=== PATIENT | male | born 1960 | race Caucasian/White ===

== ENCOUNTER 2018-12-06 20:00 | Emergency (ER) | payer SELFPAY ==
--- NOTE | 2018-12-06 20:15 | NUR.NOTE ---
Nursing Note: pt fell 18ft off of a roof at 1830 landing on his feet and then striking his wrists and coxic. no LOC no neck pain no flank pain not chest pain PT ambulated to the ED himself. primary complaint left ankle pain 10/10 pain wrist pain 5/10 and lowere back/tailbone 10/10
[2018-12-06 20:18] VITALS: BP 148/103; PULSE 74; RESP 14; TEMP 36.8; O2SAT 99
--- NOTE | 2018-12-06 20:19 | ED.GENADUL_ITS ---
Discharge Plan Disposition Patient Disposition: HOME Condition: Good Discharge Details Chief Complaint: Trauma Clinical Impression: T12 compression fracture, Left ankle sprain, Contusion, multiple sites, Fall from roof as cause of accidental injury Primary Care Provider: Phi Deleon ED Provider: Yannick Duggan [place] Meds and New Rx's Prescriptions: New ibuprofen 600 mg tablet 600 mg PO Q8H PRN (Reason: pain) Qty: 20 RF: 0 lidocaine [Lidoderm] 5 % adhesive patch,medicated 1 patch TP DAILY Qty: 15 RF: 0 Continued omeprazole 20 MG capsule,delayed release(DR/EC) 20 mg PO DAILY RF: 0 fluticasone propionate 16 GM spray,suspension 1 spry RF: 0 Discharge Instructions Additional Instructions: You will be sore and stiff over the next couple of days. Recommend ice and gentle stretching for the first couple days. Switch to heat over the weekend. Lidoderm patch to the back as directed. Ibuprofen every 8 hours as needed. May also take acetaminophen 1 g every 6-8 hours. Follow up with orthopedics in 1 to 2 weeks for reevaluation of your back and left ankle. Wear the ankle brace until follow-up. Return to ED if you develop any numbness, weakness, bladder or bowel dysfunction, increasing pain, other concerns or problems. Referrals: Miko Dillon MD [ [facility] STAFF PHYSICIAN] - Medical Decision Making Patient with fall from roof landing mostly on feet and buttocks. No head injury. No neurologic symptoms. Pain in the left ankle, pelvis, LS spine area. Hemodynamically stable. Will keep flat. 2 IVs established. Labs, CT scans, x-rays ordered. Fluids, morphine, Zofran given. 21:45 - labs unremarkable. X-ray of left ankle and foot negative per my review as well as preliminary radiology read. CT scan of the chest abdomen pelvis with TLS reconstruction shows minimal T12 anterior compression fracture otherwise negative. On reevaluation patient complaining of left hand/thumb pain. Tender over the metacarpal bone of the thumb. X-ray ordered. Given urine sample now. 23:15 -x-ray of left hand negative. Urine dipstick negative. We will give a dose of Toradol and apply Lidoderm patch to the T12 area. Will place in ankle stirrup. We will give prescriptions for Lidoderm patches and ibuprofen. Off work for the next couple of days. Will refer to orthopedics for follow-up in 1 to 2 weeks for both the ankle and the back. Return to ED for any neurologic changes, worsening pain, other concerns or problems. Lab Data Lab results reviewed: Yes I reviewed the patient's lab results. HPI General Mode of arrival: wheelchair . Date/Time Provider Initiated Documentation: 12/06/18 20:18 . Limitations to Documentation: no limitations . Information obtained by: patient, family and RN notes reviewed . HPI Narrative: Patient presents to ED with complaint of left ankle pain and back pain status post falling approximately 18 feet off a roof. He was trying to get up to clean the chimney. He stepped onto the roof ladder but thought it did not feel right and went to step back onto the ladder leading up to the roof. When he did this the roof ladder slid off the roof. This caused him to fall backwards. Neither ladder hit him. He landed on the ground striking first with his foot and buttocks. He was stunned but did not strike his head and did not have a loss of consciousness. He has no neck pain or upper back pain. He has no chest pain or difficulty breathing. He has pain in the lower back and tailbone region as well as the left ankle. He denies numbness or tingling or weakness. His brought him in for evaluation. He is having difficulty ambulating. Related Data Home Medications Medication Instructions Recorded Confirmed fluticasone propionate 1 spry 08/24/13 08/24/13 omeprazole 20 mg PO DAILY 08/24/13 12/06/18 ibuprofen 600 mg PO Q8H PRN #20 tab 12/06/18 lidocaine [Lidoderm] 1 patch TP DAILY #15 each 12/06/18 Previous Rx's Medication Instructions Recorded ibuprofen 600 mg PO Q8H PRN #20 tab 12/06/18 lidocaine [Lidoderm] 1 patch TP DAILY #15 each 12/06/18 Allergies Allergy/AdvReac Type Severity Reaction Status Date / Time No Known Allergies Allergy Unverified 12/06/18 20:24 Review of Systems Review of Systems Narrative: 12/31 Review of Systems completed and is negative except as stated above in HPI (Systems reviewed: Const, Eyes, ENT, Resp, CV, GI, , MSK, Skin, Neuro) [facility] Medical History (Updated 12/06/18 @ 20:33 by Yannick Duggan MD) GERD (gastroesophageal reflux disease) (Chronic) Social History Smoking/Tobacco Use Status: Never Alcohol Intake: current Alcohol Intake frequency: 0-2 drinks per day Drug use: Occasionally Substance use type: does not use and marijuana Do you feel safe at home: Yes Do you feel safe in your relationship?: Yes Exam Narrative Exam Narrative: Vitals: Afebrile. Elevated BP but otherwise normal vitals and saturations. Const: WDWN male in NAD. HEENT: NC/AT. Normal facial exam. Eyes: PERRL and EOMI. Neck: Supple. Trachea midline. No C-spine tenderness. Lungs: Normal respiratory effort. Lungs are clear. Chest wall non-tender. Cor: RRR without murmur/gallop. Good distal pulses. GI: Soft. NT/ND. No guarding or rebound. Back: No t-spine tenderness. Midline LS spine tenderness present. Bruising present. Neuro: A+O x 3. CN grossly in tact. Normal strength and sensation throughout. Ext: No pelvis instability or tenderness. Left ankle with swelling and bruising. No other extremity tenderness/deformity. Skin: Warm and dry without abrasions or lacerations.
[2018-12-06] MEDS: Lactated Ringers 1,000 ML 1000 ML IV (20:39)
[2018-12-06] MEDS: MORPHine 10 MG/ML VIAL 5 MG IVP ×3 (20:40→23:03)
[2018-12-06] MEDS: Ondansetron 4 MG/2 ML VIAL IVP (20:41)
[2018-12-06 20:47] LABS: Abs Immature Grans 0.03 k/cumm (0.0-0.09); Absolute Basophil Count 0.02 k/cumm (0.0-0.2); Absolute Lymphocyte Count 0.92 k/cumm (1.2-3.4); Absolute Monocyte Count 0.59 k/cumm (0.11-0.7); Absolute Neutrophil Count 3.31 k/cumm (1.2-6.7); Basophils % 0.4; Eosinophils % 3.9; HCT 39.2 % (40.0-50.0); HGB 13.9 g/dL (13.5-17.5); Immature Grans % 0.6; Lymphocytes % 18.1; Mean Corp. HGB Concentration 35.5 g/dL (32.0-36.0); Mean Corpuscular Hemoglobin 33.8 pg (27.0-33.0); Mean Corpuscular Volume 95.4 fL (80-95); Mean Platelet Volume 9.8 fL (8.0-11.0); Monocytes % 11.6; Neutrophils % 65.4; Platelet Count 164 x1000/uL (130-400); RBC 4.11 m/cumm (4.50-6.00); RBC Distribution Width 12.5 % (11.8-14.1); White Blood Cell Count 5.07 k/cumm (4.4-10.8)
--- NOTE | 2018-12-06 20:50 | DI.RAD_ITS ---
EXAM: XR ANKLE LT COMPLETE INDICATION: fell of roof. COMPARISON: No exams were available for comparison TECHNIQUE: 2D digital imaging was performed. FINDINGS: Soft tissue swelling is identified about the ankle. There is no evidence of a fracture or dislocatio n.
--- NOTE | 2018-12-06 20:52 | DI.RAD_ITS ---
EXAM: XR FOOT LT COMPLETE INDICATION: fell off roof. COMPARISON: No exams were available for comparison TECHNIQUE: 2D digital imaging was performed. FINDINGS: There is no evidence of an acute fracture or dislocation.
[2018-12-06 20:59] LABS: ALT 60 U/L (16-63); AST 30 U/L (15-37); Albumin 4.2 g/dL (3.4-5.0); Alkaline Phosphatase 62 U/L (46-116); Anion Gap 12.1 mmol/L (3-11); BUN 22 mg/dL (7-18); Bilirubin, Total 0.5 mg/dL (0.2-1.0); CO2 23.9 mmol/L (21.0-32.0); CREATININE 1.09 mg/dL (0.70-1.30); Calcium 8.4 mg/dL (8.5-10.1); Chloride 104 mmol/L (98-107); Glucose 97 mg/dL (70-100); Sodium 140 mmol/L (136-145); Total Protein 7.9 g/dL (6.4-8.2)
[2018-12-06 21:01] VITALS: PULSE 75; RESP 10; O2SAT 98
[2018-12-06 21:04] VITALS: BP 138/85; PULSE 74; PULSE 75; RESP 9; O2SAT 99
--- NOTE | 2018-12-06 21:10 | DI.CT_ITS ---
EXAM: CT CHEST/ABD/PEL W CLINICAL HISTORY: fell of second story roof. TECHNIQUE: The exam was performed according to the usual protocol. Examination of the abdomen and pelvis study was carried out according to the usual protocol with intr avenous administration 100 cc of Omnipaque 350. COMPARISON: No exams were available for comparison FINDINGS: The lungs are well expanded. No infiltrate identified. There is no pneumothorax or pleural effusion. The heart is not enlarged. Note is made of a moderate size hiatus hernia. Aorta is unremarkable. Th ere is no evidence of lymphadenopathy. Note is made of age-indeterminate fractures involving the ante rior portion of the right 2nd, 3rd, and 4th ribs,clinical correlation is needed. The soft tissues ar e unremarkable. Fatty infiltration of the liver is noted. There is no evidence of an acute injury. Gallbladder is nor mal. There are no stones or ductal dilatation. Pancreas, spleen, adrenals, kidneys unremarkable. Ther e is no evidence of bowel obstruction. No localized area of mucosal thickening is evident. Appendix i s normal. There is no evidence of free air or free fluid in the intraperitoneal space. There is no ev idence of an aortic aneurysm. There is no evidence of lymphadenopathy. The bladder is unremarkable. The reproductive organs as visualized are unremarkable. There is a compr ession fracture of T2 with less than 10 percent loss of vertebral height. There is no evidence of cor d compression. No other fractures are seen. Note is made of small bilateral fat containing inguinal h ernias IMPRESSION: Age indeterminate anterior upper rib fractures are identified. Clinical correlation is needed. There is otherwise no evidence of an acute thoracic abnormality. There is a minimal compression fracture of T2 no other acute abnormality is identified.
--- NOTE | 2018-12-06 21:21 | DI.CT_ITS ---
EXAM: CT THORACIC LUMBAR SPINE WO CLINICAL HISTORY: fell off second story roof. COMPARISON: No exams were available for comparison FINDINGS: THORACIC: There is a minimal compression fracture of T12 of less than 10 percent loss of vertebral he ight. There is no evidence of spinal stenosis or cord compression. The soft tissues are unremarkable . LUMBAR: Reveals no evidence of an acute fracture or dislocation. There is no evidence of spinal arvin nosis.The soft tissues unremarkable. . IMPRESSION: Minimal compression fracture of T12 with less than 10 percent loss of vertebral height. No acute findings involving the lumbar spine.
--- NOTE | 2018-12-06 21:27 | DI.VRAD_ITS ---
PROCEDURE INFORMATION: Exam: XR Left Ankle Exam date and time: 12/06/2018 8:33 PM Clinical history: 58 years old, male; Patient HX: Left ankle pain after fall TECHNIQUE: Imaging protocol: XR Left ankle. Views: 3 or more views. COMPARISON: No relevant prior studies available. FINDINGS: Bones/joints: Normal. No acute fracture or dislocation. Soft tissues: There is soft tissue swelling and a joint effusion. IMPRESSION: No acute no acute fracture or dislocation. Soft tissue and joint effusion present. Dictated and Authenticated by: Enma Martinez MD. Ordering:KATHARNIE Lanier MD
--- NOTE | 2018-12-06 21:27 | DI.VRAD_ITS ---
PROCEDURE INFORMATION: Exam: CT Chest With Contrast Exam date and time: 12/06/2018 9:05 PM Clinical history: 58 years old, male; Injury or trauma; Fall; Initial encounter; Generalized; Blunt trauma (contusions or hematomas); Injury date: 12/06/2018; Injury details: Fell 2 stories from roof TECHNIQUE: Imaging protocol: Computed tomography of the chest with intravenous contrast. Radiation optimization: All CT scans at this facility use at least one of these dose optimization techniques: automated exposure control; mA and/or kV adjustment per patient size (includes targeted exams where dose is matched to clinical indication); or iterative reconstruction. COMPARISON: No relevant prior studies available. FINDINGS: Lungs: The lungs are clear. Pleural space: Unremarkable. No pneumothorax. No pleural effusion. Heart: Unremarkable. No cardiomegaly. No pericardial effusion. Mediastinum: Moderate hiatal hernia. Aorta: Unremarkable. No aortic aneurysm. Lymph nodes: Unremarkable. No enlarged lymph nodes. Bones/joints: Age-indeterminate fractures of the anterior right ribs 2, 3 and 4, clinical correlation needed. No displaced fractures are seen. Soft tissues: Unremarkable. IMPRESSION: Age-indeterminate anterior upper right rib fractures as described. Clinical correlation needed. No other acute findings in the chest. PROCEDURE INFORMATION: Exam: CT Abdomen and Pelvis With Contrast Exam date and time: 12/06/2018 9:05 PM Clinical history: 58 years old, male; Injury or trauma; Fall; Initial encounter; Generalized; Blunt trauma (contusions or hematomas); Injury date: 12/06/2018; Injury details: Fell 2 stories from roof TECHNIQUE: Imaging protocol: Computed tomography of the abdomen and pelvis with intravenous contrast. Radiation optimization: All CT scans at this facility use at least one of these dose optimization techniques: automated exposure control; mA and/or kV adjustment per patient size (includes targeted exams where dose is matched to clinical indication); or iterative reconstruction. Contrast material: [id number]; Contrast volume: 100 ml; Contrast route: IV RAC 18G; COMPARISON: No relevant prior studies available. FINDINGS: Liver: There is a diffuse decrease in hepatic parenchymal density, consistent with fatty infiltration. No acute liver injury. Gallbladder and bile ducts: Normal. No calcified stones. No ductal dilation. Pancreas: Normal. No ductal dilation. Spleen: Normal. No splenomegaly. Adrenals: Normal. No mass. Kidneys and ureters: Normal. No hydronephrosis. Stomach and bowel: Unremarkable. No obstruction. No mucosal thickening. Appendix: A normal appendix is identified. Intraperitoneal space: Unremarkable. No free air. No significant fluid collection. Vasculature: Unremarkable. No abdominal aortic aneurysm. Lymph nodes: Unremarkable. No enlarged lymph nodes. Bladder: Unremarkable as visualized. Reproductive: Unremarkable as visualized. Bones/joints: Mild compression fracture at T12 with less than 10% loss of vertebral body height.. No evidence of cord compression. No other fractures are seen. Soft tissues: There are small bilateral fat containing inguinal hernias. IMPRESSION: Minimal T12 compression fracture. No other acute findings. Dictated and Authenticated by: Enma Martinez MD. Ordering:KATHARINE Lanier MD
--- NOTE | 2018-12-06 21:28 | DI.VRAD_ITS ---
PROCEDURE INFORMATION: Exam: XR Left Foot Complete Exam date and time: 12/06/2018 8:33 PM Clinical history: 58 years old, male; Pain; Ankle and foot; Left TECHNIQUE: Imaging protocol: XR Left foot. Views: 3 or more views. COMPARISON: No relevant prior studies available. FINDINGS: Bones/joints: Normal. No acute fracture or dislocation. Soft tissues: Normal. IMPRESSION: No acute findings. Dictated and Authenticated by: Enma Martinez MD. Ordering:KTAHARINE Lanier MD
--- NOTE | 2018-12-06 21:30 | DI.VRAD_ITS ---
PROCEDURE INFORMATION: Exam: CT Thoracic Spine Without Contrast Exam date and time: 12/06/2018 9:08 PM Clinical history: 58 years old, male; Injury or trauma; Fall; Initial encounter; Blunt trauma (contusions or hematomas); Injury date: 12/06/2018; Injury details: Fell 2 stories from roof TECHNIQUE: Imaging protocol: Computed tomography images of the thoracic spine without contrast. Radiation optimization: All CT scans at this facility use at least one of these dose optimization techniques: automated exposure control; mA and/or kV adjustment per patient size (includes targeted exams where dose is matched to clinical indication); or iterative reconstruction. COMPARISON: No relevant prior studies available. FINDINGS: Vertebrae: Minimal compression fracture at T12, with less than 10% loss of vertebral body height. Discs/Spinal canal/Neural foramina: No spinal stenosis. No cord compression. Soft tissues: Unremarkable. IMPRESSION: Minimal compression fracture at T12, with less than 10% loss of vertebral body height. PROCEDURE INFORMATION: Exam: CT Lumbar Spine Without Contrast Exam date and time: 12/06/2018 9:08 PM Clinical history: 58 years old, male; Injury or trauma; Fall; Initial encounter; Blunt trauma (contusions or hematomas); Injury date: 12/06/2018; Injury details: Fell 2 stories from roof TECHNIQUE: Imaging protocol: Computed tomography images of the lumbar spine without contrast. Radiation optimization: All CT scans at this facility use at least one of these dose optimization techniques: automated exposure control; mA and/or kV adjustment per patient size (includes targeted exams where dose is matched to clinical indication); or iterative reconstruction. COMPARISON: No relevant prior studies available. FINDINGS: Vertebrae: No acute fracture. Normal alignment. Discs/Spinal canal/Neural foramina: No spinal stenosis. No neural foraminal narrowing. Soft tissues: Unremarkable. IMPRESSION: No acute findings in the lumbar spine. Dictated and Authenticated by: Enma Martinez MD. Ordering:KATHARINE Lanier MD
--- NOTE | 2018-12-06 22:59 | DI.RAD_ITS ---
EXAM: XR HAND LT COMPLETE INDICATION: trauma. COMPARISON: LEFT HAND COMPLETE from 08/23/2017 TECHNIQUE: 2D digital imaging was performed. FINDINGS: There is no evidence of an acute fracture or dislocation. Degenerative changes involving the 1st met acarpal multangular and inter multangular joints is demonstrated. IMPRESSION: No evidence of a fracture or dislocation.
--- NOTE | 2018-12-06 23:07 | DI.VRAD_ITS ---
PROCEDURE INFORMATION: Exam: XR Left Hand Exam date and time: 12/06/2018 9:45 PM Clinical history: 58 years old, male; Injury or trauma; Fall; Initial encounter; Blunt trauma (contusions or hematomas; Hand; Left; Injury date: 12/06/2018; Injury details: Fell 2 stories from roof TECHNIQUE: Imaging protocol: XR Left hand. Views: 3 or more views. COMPARISON: CR LEFT HAND COMPLETE 08/23/2017 8:06 PM FINDINGS: Bones/joints: Normal. Soft tissues: Normal. IMPRESSION: No acute findings. Dictated and Authenticated by: Enma Martinez MD. Ordering:KATHARINE Lanier MD
[2018-12-06 23:16] LABS: Bilirubin Negative (Negative); Blood Negative (Negative); Clarity Clear (Clear); Glucose Negative (Negative); Ketones Negative (Negative); Leukocyte Esterase Negative (Negative); Nitrite Negative (Negative); Specific Gravity <= 1.005 (1.005-1.025); Urobilinogen 0.2 EU/dL (Up TO 0.2); pH 5.5 (5-8)
== END 2018-12-06 23:55 | disposition home or self-care (01) ==
PROVIDERS: Emergency Provider Emergency Medicine; PCP Specialist/Technologist Athletic Trainer
DX: S22.080A Wedge compression fracture of T11-T12 vertebra, initial encounter for closed fracture (principal); S93.402A Sprain of unspecified ligament of left ankle, initial encounter; S60.222A Contusion of left hand, initial encounter; S30.0XXA Contusion of lower back and pelvis, initial encounter; W13.2XXA Fall from, out of or through roof, initial encounter
CPT/HCPCS: 29515; 36415; 74177; 80053; 86850; 86900; 86901; 96361; 96374; 96375; 96376; 99285; 71260; 72128; 72131; 73130; 73610; 73630; 81003; 85025; J2270; J2405; L4350

== ENCOUNTER 2018-12-20 09:49 | Outpatient (CLI) | payer SELFPAY ==
--- NOTE | 2018-12-20 09:37 | DI.RAD_ITS ---
EXAM: XR ANKLE LT COMPLETE INDICATION: L ankle pain s/p fall. COMPARISON: XR ANKLE LT COMPLETE from 12/06/2018 XR FOOT LT COMPLETE from 12/20/2018 TECHNIQUE: 2D digital imaging was performed. FINDINGS: Three views of the ankle and three views the foot were obtained. The ankle mortise is well maintaine d. There are minimal degenerative changes of the joints of the ankle and foot. No other significant bony abnormality seen. IMPRESSION:
== END 2018-12-20 10:09 ==
PROVIDERS: PCP Specialist/Technologist Athletic Trainer; Visit Provider Student in an Organized Health Care Education/Training Program
DX: M79.672 Pain in left foot (principal); M25.572 Pain in left ankle and joints of left foot
CPT/HCPCS: 73610; 73630

== ENCOUNTER 2019-02-21 10:37 | Outpatient (CLI) | payer SELFPAY ==
--- NOTE | 2019-02-21 10:29 | DI.RAD_ITS ---
EXAM: XR WRIST LT COMP NAVICULAR INDICATION: L wrist injury. COMPARISON: LEFT HAND COMPLETE from 08/23/2017 XR HAND LT COMPLETE from 12/06/2018 TECHNIQUE: 2D digital imaging was performed. FINDINGS: There are mild degenerative changes of the distal radial ulnar joint and radial carpal joint. There are mild to moderate degenerative changes at the 1st carpal metacarpal joint. A bone island is note d in the distal pole of the navicular. No navicular fracture is seen. IMPRESSION: Mild degenerative changes.
== END 2019-02-21 10:57 ==
PROVIDERS: PCP Specialist/Technologist Athletic Trainer; Visit Provider Physician Assistant
DX: M25.532 Pain in left wrist; M18.12 Unilateral primary osteoarthritis of first carpometacarpal joint, left hand; M19.042 Primary osteoarthritis, left hand; S69.92XA Unspecified injury of left wrist, hand and finger(s), initial encounter
CPT/HCPCS: 73110

== ENCOUNTER 2019-03-12 08:23 | Outpatient (CLI) | payer SELFPAY ==
[2019-03-12 09:59] LABS: Calculated LDL 135 mg/dL; Cholesterol 218 mg/dL (<200); HDL Cholesterol 64 mg/dL (40-60); Triglyceride 95 mg/dL (<150)
[2019-03-14 09:58] LABS: PSA, Screening 0.4 ng/mL (0.0-3.5); Parathyroid Hormone,Intact 87 pg/mL (19-88)
== END 2019-03-12 08:43 ==
PROVIDERS: PCP Specialist/Technologist Athletic Trainer; Visit Provider Nurse Practitioner Family
DX: E21.3 Hyperparathyroidism, unspecified (principal); Z13.220 Encounter for screening for lipoid disorders; Z12.5 Encounter for screening for malignant neoplasm of prostate; Z00.00 Encounter for general adult medical examination without abnormal findings
CPT/HCPCS: 36415; 80061; 84153; 83970

== ENCOUNTER 2021-01-19 11:38 | Outpatient (REF) | payer SELFPAY ==
[2021-01-19 15:08] LABS: Anion Gap 11.2 mmol/L (3-11); BUN 17 mg/dL (7-18); CO2 24.8 mmol/L (21.0-32.0); Calcium 8.8 mg/dL (8.5-10.1); Calculated LDL 113 mg/dL (<100); Chloride 107 mmol/L (98-107); Cholesterol 212 mg/dL (<200); Glucose 93 mg/dL (74-106); HDL Cholesterol 59 mg/dL (40-60); Potassium 4.2 mmol/L (3.5-5.1); Sodium 143 mmol/L (136-145); Triglyceride 200 mg/dL (<150)
[2021-01-20 10:36] LABS: Parathyroid Hormone,Intact 51 pg/mL (19-88)
[2021-01-21 01:42] LABS: Vitamin D 25 Total 36.1 ng/mL (30-100)
== END 2021-01-19 11:39 | disposition home or self-care (01) ==
LOC: NCHCN 11:38
PROVIDERS: PCP Specialist/Technologist Athletic Trainer; Visit Provider Nurse Practitioner Family
DX: I10 Essential (primary) hypertension (principal)
CPT/HCPCS: 80048; 80061; 82306; 83970

== ENCOUNTER 2021-06-01 21:20 | Outpatient (REF) | payer SELFPAY ==
[2021-06-01 12:52] LABS: Calcium 8.5 mg/dL (8.5-10.1); PHOSPHORUS 2.5 mg/dL (2.6-4.7)
[2021-06-02 10:18] LABS: Parathyroid Hormone,Intact 63 pg/mL (19-88)
[2021-06-03 00:48] LABS: Vitamin D 25 Total 34.9 ng/mL (30-100)
== END 2021-06-01 21:21 | disposition home or self-care (01) ==
LOC: NCHCN 21:20
PROVIDERS: PCP Specialist/Technologist Athletic Trainer; Visit Provider Nurse Practitioner Family
DX: E21.3 Hyperparathyroidism, unspecified (principal); I10 Essential (primary) hypertension; M85.80 Other specified disorders of bone density and structure, unspecified site
CPT/HCPCS: 82306; 82310; 82565; 83970; 84100

== ENCOUNTER 2021-12-21 01:57 | Outpatient (CLI) | payer SELFPAY ==
[2021-12-21 09:02] LABS: ALT 50 U/L (16-63); AST 27 U/L (15-37); Albumin 4.2 g/dL (3.4-5.0); Alkaline Phosphatase 58 U/L (46-116); Anion Gap 8.2 mmol/L (3-11); BUN 18 mg/dL (7-18); Bilirubin, Total 0.9 mg/dL (0.2-1.0); CO2 27.8 mmol/L (21.0-32.0); CREATININE 1.1 mg/dL (0.70-1.30); Chloride 103 mmol/L (98-107); Glucose 105 mg/dL (74-106); PHOSPHORUS 2.9 mg/dL (2.6-4.7); Potassium 4.4 mmol/L (3.5-5.1); Sodium 139 mmol/L (136-145); Total Protein 8.1 g/dL (6.4-8.2)
[2022-02-09 08:58] LABS: NTX-Telopeptide 9.2 nM BCE (5.4-24.2)
== END 2021-12-21 01:58 | disposition home or self-care (01) ==
LOC: LBO 01:58
PROVIDERS: PCP Specialist/Technologist Athletic Trainer; Visit Provider Internal Medicine Endocrinology, Diabetes & Metabolism
DX: M81.0 Age-related osteoporosis without current pathological fracture (principal)
CPT/HCPCS: 36415; 80053; 82523; 84100

== ENCOUNTER 2021-12-21 08:22 | Outpatient (REF) | payer SELFPAY ==
--- OUTSIDE RECORDS SUMMARY | 2021-12-21 08:24 | XMS_ITS ---
:1960 Author Care Team Providers Name Role Phone Jossue Valenzuela Primary Care Provider Unavailable Allergies Code Code System Name Reaction Severity Status Onset NKDA ? Notes: Seasonal allergies. Medications Name Status Start Date Stop Date ? ? amoxicillin 500 mg capsule Completed ? 08/17 TAKE ONE CAPSULE BY MOUTH EVERY 8 HOURS UNTIL GONE amoxicillin 875 mg-potassium clavulanate 125 mg tablet Completed ? 08/17/2021 TAKE ONE TABLET BY MOUTH TWICE A DAY calcium carbonate 600 mg calcium (1,500 mg) tablet Completed ? 08/17/2021 Take 1 tablet every day by oral route. calcium carbonate 600 mg-vitamin D3 20 mcg (800 unit) tablet Act serjio ? Not available Take 1 tablet every day by oral route. chlorhexidine gluconate 0.12 % mouthwash Completed ? 08/17/2021 RINSE WITH 15ML FOR 30 SECONDS IN THE M ORNING AND EVENING AFTER TOOTHBRUSHING. EXPECTORATE AFTER RINSING cholecalciferol (vitamin D3) 25 mcg (1,000 unit) capsule Complet ed ? 08/17/2021 Take 1 capsule every day by oral route. Claritin 10 mg chewable tablet Completed ? 0 08/17/2021 Take 1 tablet every day by oral route. Claritin-D 24 Hour 10 mg-240 mg tablet,extended release Active ? Not available Take 1 tablet every day by oral route. Flonase 50 mcg/actuation nasal spray,suspension Active ? Not available [place] 1 spray every day by intranasal route as needed. ibuprofen 200 mg tablet Active ? Not avai lable Take 1 tablet every 6 hours by oral route as needed. magnesium 500 mg tablet Active ? Not avai lable Take 1 tablet every day by oral route. multivitamin Active ? Not available omeprazole 20 mg tablet,delayed release Active ? Not available Take 1 tablet twice a day by oral route. vitamin B complex Active ? Not available Problems Name Status Onset Date Source ? Hyperparathyroidism Active ? ? Alcohol Dependence Active ? ? Tobacco User Active ? ? Disorder of Ear Active ? ? Hypertensive Disorder Active ? ? Allergic Rhinitis Active ? ? Dental Abscess Active ? ? Acid Reflux Active ? ? Osteoarthritis Active ? ? Pain in Lower Limb Active ? ? Osteopenia Active ? ? History of Colonoscopy Active ? ? Pain in Left Thumb Active ? ? Procedures None recorded. Results Lab Results None recorded. Past Encounters 08/17/2021 Osteoporosis; Secondary Hyperparathyroid ism Jossue Valenzuela MD-FACE: [address] [place] [address], Ph. Social History Tobacco Smoking Status Current Some Day Smoker Notes: Occa sional cigar. Occasional cigar. Vaccine List Vaccine Type COVID-19 vaccine, vector-nr, [id number], PF , 0.5 mL ([place]nozen) 08/17/2020 COVID-19, mRNA, LNP-S, PF, 100 mcg/0.5 m L dose (Aggios) 12/18/2020 Plan of Care Patient Goals Reduce Risk of fragility fracture. Patient Instructions Testing 1. Blood go to Lab in Morning, fasting. ( 8 hours-- water only for 8 hours ) 2. 24 hour urine; 6 AM to 6am (or 8 AM t o 8 AM or 5 AM to 5 AM or any 24 hr Period) first day, first VOID 6 AM, -- VOID And DISCARD from 6 am until 6 Am day#2 -- VOID and C ollect all urine second day Last VOID 6 Am --- VOID and C ollect HEALTHY EATING HABITS ----Foods rich in Calcium: Dairy (milk, yogurt, cheese), nuts,(hermann almonds), green leafy vegetables ( especilly Spinach and others), Sardines. ---Limited Saturated Fat ---No added salt: ----High Fiber ---- Adequate Protein: Meat, Fish, Egg, Lentils ---- Green Vegetables ----Fruit, But Limit amounts (one apple, one peach, one pear, 1/2 banana, 12 grapes) ---- Take one large glass of water befor e each meal EXERCISE Move, Lift, Stretch -------MOVE (walk, hike, treadmill, swim , bicycle, snow shoe, mow lawn, others) -------LIFT: Upper body (arms) - 1 -2#, more with good body posture. Lower body (leg) limited squats, stairs , step ------STRETCH: Stretch: Gently, all area s from neck to toes. Vitamin D Supplements: ---- continue Vitamin D 3 2000 units one cap/tablet by mouth daily. Calcium Supplements: ----- Not recommended Now. BONE SPECIFIC MEDICATIONS: I- Antiresorptive Oral Bisphosphonate ---- Alendronate 70 mg one tablet with 1 2 oz plain water on empty stomach in morning once every week. Remain sitting, standing or walking for one hour after each dose. *will begin after review of labs and pat ient review of Medication Information sheets. Followup A) would like to see patient once after 8 weeks of treatment B) then yearly labs and visit C) will repeat Bone Density in two to th ree years. D) Likely course of treatment five years , then observation. Reminders Provider Appointments None recorded. ? ? Lab None recorded. ? ? Referral None recorded. ? ? Procedures None recorded. ? ? Surgeries None recorded. ? ? Imaging None recorded. ? ? Vitals Height Weight BMI Blood Pressure 177.8 cm 92.99 kg 29.4 kg/m2 142/82 mm[Hg]
--- OUTSIDE RECORDS SUMMARY | 2021-12-21 08:24 | XMS_ITS | Clinical Summary ---
:1960 Author Organization [facility] [place] [address] Care Team Providers Name Role Phone RefugioLynda APRN Primary Care Provider Allergies No known active allergies Medications Medication Sig Dispensed Refills Start Date End Date Status omeprazole (PRILOSEC) Take 20 mg by 0 Active 20 mg capsule mouth daily. Social History Tobacco Use Types Packs/Day Years Used Date Never Assessed Alcohol Habits Answer Date Recorded How often do you have a drink containing alcohol? Not asked How many drinks containing alcohol do you have on a typical Not asked day when you are drinking? How often do you have six or more drinks on one occasion? No t asked Comment: 2-3 a night 03/04/2013 Sex Assigned at Date Recorded Not on file Last Filed Vital Signs Vital Sign Reading Time Taken Comments Blood Pressure 123/85 03/04/2013 1:35 PM EST Pulse 59 03/04/2013 1:35 PM EST Temperature - - Respiratory Rate 16 03/04/2013 1:35 PM EST Oxygen Saturation 97% 03/04/2013 1:35 PM EST Inhaled Oxygen Concentration - - Weight - - Height - - Body Mass Index - - Plan of Treatment Upcoming Encounters Date Type Specialty Care Team Description 03/04/2023 Hospital Encounter Gastroenterology Samantha Springer MD [facility] GASTROENTEROLOGY DEPT [place], [place] [address] (Wo rk) Scheduled Procedures Name Priority Associated Diagnoses Date/Time COLONOSCOPY, DIAGNOSTIC 10y surv Health Maintenance Due Date Last Done Comments Covid-19 Vaccine (#1) 05/23/1964 HIV screen 05/23/1977 Hepatitis C Screening 05/23/1977 Lipid Screening 05/23/1977 Tdap adult 05/23/1978 Tetanus vaccine 05/23/1978 Zoster vaccine (1 of 2) 05/23/2009 Advance Directive 05/23/2014 Influenza (Flu) vaccine (1 of - 11/18/2021 Influenza standard series) Colonoscopy 03/04/2023 03/04/2013, 03/04/2013 Care Teams Interpreter Relationship Specialty Start Date End Date Lynda Phillips APRN PCP - General 10/25/12
--- OUTSIDE RECORDS SUMMARY | 2021-12-21 08:24 | XMS_ITS | Encounter Summary ---
:1960 Author Organization [facility] [place] [address] Care Team Providers Name Role Phone OrocovisLynda alegria GM Primary Care Provider Encounter Details Date Type Department Care Team Description 03/04/2013 Surgery Gastroenterology at [facility] Israel Springer, COLONOSCOPY, [facility] Nahum [place] [address] [facility] [phone] GASTROENTEROLOGY DEPT [place], [place] [address] Social History Tobacco Use Types Packs/Day Years [...] Assigned at Date Recorded Not on file documented as of this encounter Last Filed Vital Signs Vital Sign Reading Time Taken Comments Blood Pressure 123/85 03/04/2013 1:35 PM EST Pulse 59 03/04/2013 1:35 PM EST Temperature - - Respiratory Rate 16 03/04/2013 1:35 PM EST Oxygen Saturation 97% 03/04/2013 1:35 PM EST Inhaled Oxygen Concentration - - Weight - - Height - - Body Mass Index - - documented in this encounter Discharge Instructions Discharge InstructionsEmilie Boyle RN - 03/04/2013 1:36 PM EST Colonoscopy What to expect after the procedure You may feel a little more gassy or bloated than usual. This is normal. You should expect the return of normal bowel function in the 2 to 3 days. Activity Because of the sedation that you received your judgement and reaction time are effected ?? Go home and rest quietly for the remainder of the day. You may resume your normal activities tomorrow. ?? Change from one position to the next slowly. You may lose your balance unexpectedly ?? Be careful on stairs, as you may be unsteady on your feet FOR THE NEXT 24 HRS ?? DO NOT DRIVE OR OPERATE ANY MACHINERY ?? DO NOT DRINK ALCOHOLIC BEVERAGES ?? DO NOT SIGN LEGAL DOCUMENTS ?? If you are a smoker: DO NOT SMOKE WHILE YOU ARE ALONE Diet ?? Start by eating small portions of foods that ordinarily will not upset your stomach . Avoid gas producing foods for the next few days ?? Be gentle with what you choose to start with ?? Drink plenty of fluids ( unless your doctor has told you not to). IV SITE-- slight redness, or tenderness is normal. You can use warm compresses if you become concerned. If the tenderness +/or redness increases or foul drainage and a red streak occurs, please contact your PCP immediately When shoud you call for help? Call 911 anytime you think you may need emergency care. For example If you pass out ( loss of consciousness) If you pass maroon or bloody stools If you have severe belly pain Call your doctor now or seek immediate medical care If your stools are black and tarlike If your stools have streaks of blood, but you did not have a biopsy or any polyps removed If you have belly pain, or your belly is swollen and firm If you vomit If you have a fever If you are very dizzy Watch closely for changes in your health, and be sure to contact your doctor if you have any problems Your doctor will let you know when you will need your next colonoscopy. The results of your test andyour risk for colorectal cancer will help your doctor decide how often you need to be checked. Monday-Monday Clinic [phone] 8a-5p Same Day Endo [phone] 7a-8p Otherwise contact [phone] and ask to speak to the clinical specialist filling station equipment mechanic Follow up care is a rodríguez part of your treatment and safety. Be sure to make and go to all appointments, and call your doctor if you are having problems. Discharge instructions reviewed with patient who expresses understanding documented in this encounter Medications at Time of Discharge Medication Sig Dispensed Refills Start Date End Date omeprazole (PRILOSEC) 20 Take 20 mg by mouth 0 mg capsule daily. documented as of this encounter H&P Notes Israel Springer MD - 03/04/2013 12:33 PM EST Gastroenterology and Hepatology Pre-Procedure History and Physical Exam Procedure: colonoscopy Indication: screening, paternal uncle with CRC at age >60 There is no problem list on file for this patient. EXAM: HEENT: Airway examined, oropharynx clear LUNGS: Clear to auscultation HEART: Regular rate and rhythm, normal S1, S2 ABDOMEN: Normal bowel sounds, soft, non tender, non distended, A/P Proceed with the planned endoscopic procedure. Risks and benefits of the procedure explained to the patient. Consent signed. documented in this encounter Miscellaneous Notes Miscellaneous - Provider, Scanning - 03/04/2013 10:46 PM EST Miscellaneous - Provider, Scanning - 03/04/2013 2:49 PM EST documented in this encounter Plan of Treatment Upcoming Encounters Date Type Specialty Care Team Description 03/04/2023 Hospital Encounter Gastroenterology Samantha Springer MD [facility] GASTROENTEROLOGY DEPT [place], [place] [address] (Wo rk) Scheduled Procedures Name Priority Associated Diagnoses Date/Time COLONOSCOPY, DIAGNOSTIC 10y surv documented as of this encounter Procedures Procedure Name Priority Date/Time Associated Diagnosis Comme nts COLONOSCOPY, DIAGNOSTIC 03/04/2013 12:48 PM Screening EST documented in this encounter Visit Diagnoses Not on filedocumented in this encounter Administered Medications Inactive Administered Medications - up to 3 most recent administrations Medication Order MAR Action Action Date Dose Rate Site fentaNYL 50mcg/mL injection Given 03/04/2013 1:08 PM EST 50 mcg Right Arm ONCE PRN, Starting on Mon03/04/13 at 1255, Until Mon03/04/13 at 1742, Pain, Intra-Operative (Intra-Procedure), Routine Given 03/04/2013 1:03 PM EST 50 mcg Right Arm Given 03/04/2013 12:58 PM EST 50 mcg Righ t Arm midazolam (VERSED) injection Given 03/04/2013 1:08 PM EST 1 mg Right Arm ONCE PRN, Starting on Mon03/04/13 at 1255, Until Mon03/04/13 at 1742, Sleep, Intra-Operative (Intra-Procedure), Routine Given 03/04/2013 1:03 PM EST 1 mg Right Arm Given 03/04/2013 12:58 PM EST 1 mg Righ t Arm sodium chloride 0.9% infusion New Bag 03/04/2013 12:45 PM EST 50 mL/hr 50 mL/hr 50 mL/hr, Intravenous, CONTINUOUS, Starting on Mon03/04/13 at 1245, Until Mon03/04/13 at 1742, Endoscopy (Day of Procedure) documented in this encounter Active and Recently Administered Medications Times are shown in EST. Continuous Medication Order 03/02/2013 03/03/2013 03/04/2013 sodium chloride 0.9% infusion (CANCELED) 1245 (New Bag - Provider: Angelica Elaine RN) 50 mL/hr, at 50 mL/hr, Intravenous, CONT INUOUS, Starting Mon03/04/13 at 1245, Until Mon03/04/13 at 1742, Endo (Day of Procedure) PRN Medication Order 03/02/2013 03/03/2013 03/04/2013 fentaNYL 50mcg/mL injection (CANCELED) 1255 (Given - Provider: Rinku Harper RN)1258 (Given - Provider: Rinku Harper RN)1303 (Given - Provider: Rinku Harper RN)1308 (Given - Provider: Rinku Harper RN) ONCE PRN, Starting Mon03/04/13 at 1255, Until Mon03/04/13 at 1742, Pain, Intra-Operative (Intra-Procedure), Routine midazolam (VERSED) injection (CANCELED) 1255 (Given - Provider: Rinku Harper RN)1258 (Given - Provider: Rinku Harper RN)1303 (Given - Provider: Rinku W [place], RN)1308 (Given - Provider: Rinku Harper RN) ONCE PRN, Starting Mon03/04/13 at 1255, Until Mon03/04/13 at 1742, Sleep, Intra-Operative (Intra-Procedure), Routine documented in this encounter Care Teams Wellness Assistant Relationship Specialty Start Date End Date Lynda Phillips APRN PCP - General 10/25/12 documented as of this encounter
--- OUTSIDE RECORDS SUMMARY | 2021-12-21 08:24 | XMS_ITS | Encounter Summary ---
:1960 Demographics Home Phone Preferred Language Unknown Marital Status Restorationism Affiliation Unknown Race Unknown Ethnic Group Unknown Author Organization [facility] Address [address] [place] [address] Care Team Providers Name Role Phone Unavailable Primary Care Provider Unavailable Encounter Details Date Type Department Care Team Description 03/12/[address] [facility] Unknown, Provider, Pathology & Laboratory [facility] [address] [place] [address] [place] [address] Social History Tobacco Use Types Packs/Day Years Used Date Never Assessed Sex Assigned at Date Recorded Not on file documented as of this encounter Plan of Treatment Not on filedocumented as of this encounter Procedures Procedure Name Priority Date/Time Associated Comments Diagnosis PTH INTACT Routine 03/12/2019 8:34 EST Results for this procedure are i n the results section. PSA TOTAL, Routine 03/12/2019 8:34 EST Results for this DIAGNOSTIC procedure are i n the results section. documented in this encounter Results PTH INTACT (03/12/2019 8:34 EST) Pathologist Sig nature Intact PTH 87 19 - 88 pg/mL [facility] Specimen Blood - Venous blood (substance) Performing Organization Address City/[facility] Code Phon e Number [facility] [address] [place] [address] SERVICES PSA TOTAL, DIAGNOSTIC (03/12/2019 8:34 EST) Pathologist Sig nature PSA 0.4 0.0 - 3.5 ng/mL [facility] Specimen Blood - Venous blood (substance) Narrative [facility] - 03/14/2019 9:55 EST NOTE: Serum PSA concentration should not be in terpreted as absolute evidence for the presence or absence of malignant disease. Assayed on Siemens ADVIA Centaur XPT usi ng chemiluminescent technology.??Values obtained by using different assay methods cannot be used interchangeably. Performing Organization Address City/[facility]/ZIP Code Phon e Number [facility] [address] [place] [address] SERVICES documented in this encounter Visit Diagnoses Not on filedocumented in this encounter
--- OUTSIDE RECORDS SUMMARY | 2021-12-21 08:24 | XMS_ITS | Encounter Summary ---
:1960 Demographics Home Phone Preferred Language Unknown Marital Status Yazdanism Affiliation Unknown Race Unknown Ethnic Group Unknown Author Organization [facility] Address [address] [place] [address] Care Team Providers Name Role Phone Unavailable Primary Care Provider Unavailable Encounter Details Date Type Department Care Team Description 06/01/2021 Lab Requisition [facility] Outr Resulting Lab, Pathology & Laboratory Provider General acute hospital [address] [place] [address] Social History Tobacco Use Types Packs/Day Years Used Date Never Assessed Sex Assigned at Date Recorded Not on file documented as of this encounter Plan of Treatment Not on filedocumented as of this encounter Procedures Procedure Name Priority Date/Time Associated Diagnosis Comme nts PTH INTACT Routine 06/01/2021 9:30 EDT Results for this procedure are i n the results section . documented in this encounter Results PTH INTACT (06/01/2021 9:30 EDT) Pathologist Sig nature Intact PTH 63 19 - 88 pg/mL [facility] Specimen Blood - Venous blood (substance) Performing Organization Address City/State/ZIP Code Phon e Number [facility] [address] [place] [address] SERVICES documented in this encounter Visit Diagnoses Not on filedocumented in this encounter
--- OUTSIDE RECORDS SUMMARY | 2021-12-21 08:24 | XMS_ITS | Encounter Summary ---
:1960 Demographics Home Phone Preferred Language Unknown Marital Status Jewish Affiliation Unknown Race Unknown Ethnic Group Unknown Author Organization [facility] Address [address] [place] [address] Care Team Providers Name Role Phone Unavailable Primary Care Provider Unavailable Encounter Details Date Type Department Care Team Description 01/19/2021 Lab Requisition [facility] Outr Resulting Lab, Pathology & Laboratory Provider [facility] [address] [place] [address] Social History Tobacco Use Types Packs/Day Years Used Date Never Assessed Sex Assigned at Date Recorded Not on file documented as of this encounter Plan of Treatment Not on filedocumented as of this encounter Procedures Procedure Name Priority Date/Time Associated Diagnosis Comme nts PTH INTACT Routine 01/19/2021 9:45 EDT Results for this procedure are i n the results section . documented in this encounter Results PTH INTACT (01/19/2021 9:45 EDT) Pathologist Sig nature Intact PTH 51 19 - 88 pg/mL [facility] Specimen Blood - Venous blood (substance) Performing Organization Address City/State/ZIP Code Phon e Number [facility] [address] [place] [address] SERVICES documented in this encounter Visit Diagnoses Not on filedocumented in this encounter
--- OUTSIDE RECORDS SUMMARY | 2021-12-21 08:24 | XMS_ITS | Encounter Summary ---
:1960 Author Organization [facility] [place] [address] Care Team Providers Name Role Phone Lynda Phillips APRN Primary Care Provider Encounter Details Date Type Department Care Team Description 03/04/2013 Orders Only [facility] Karma Phillips [facility] [address] [place] [address] [place] [address] [phone] Social History Tobacco Use Types Packs/Day Years [...] as of this encounter Plan of Treatment Upcoming Encounters Date Type Specialty Care Team Description 03/04/2023 Hospital Encounter Gastroenterology Samantha Springer MD [facility] GASTROENTEROLOGY DEPT [place], [place] [address] (Wo rk) Scheduled Procedures Name Priority Associated Diagnoses Date/Time COLONOSCOPY, DIAGNOSTIC 10y surv documented as of this encounter Procedures Procedure Name Priority Date/Time Associated Diagnosis Comme nts COLONOSCOPY Routine 03/04/2013 12:36 PM Results for this EST procedure are i n the results section . documented in this encounter Results COLONOSCOPY (03/04/2013 12:36 PM EST) [facility] Method Time Signature COLONOSCOPY [facility] Endoscopy Patient Name: David Saunders ? Procedure Date: 03/04/2013 12:36 PM ? Date of : 1960 ? Age: 52 ? Order #: [id number] ? Procedure: ? Colonoscopy Indications: ? Screening for colorectal malignant ? neoplasm Providers: ? Israel Springer MD, Rinku Brito ? Meredith, RN, Mattie Maki MD: ?Lynda Phillips MD Medicines: ? Fentanyl 200 micrograms IV, Midazo doyle ? 4 mg IV Complications: ? No immediate complications. Procedure: ? Pre-Anesthesia Assessment: ? - Prior to the procedure, a H istory ? and Physical was performed, a nd ? patient medications, allergie s and ? sensitivities were reviewed. The ? patient's tolerance of previo us ? anesthesia was reviewed. ? - Mental Status Examination: alert ? and oriented. Airway Examinat ion: ? normal oropharyngeal airway a nd neck ? mobility. Respiratory Examina tion: ? clear to auscultation. CV ? Examination: normal. ? - ASA Grade Assessment: I - A normal, ? healthy patient. ? - The anesthesia plan was to use ? moderate sedation/analgesia ? (conscious sedation). ? The procedure, indications, b enefits, ? risks and alternatives were e xplained ? to the patient. Specifically ? discussed were potential ? complications including, but not ? limited to, bleeding, perfora tion, ? infection, missing a cancer, and ? adverse medication reactions. The ? patient was placed in the lef t ? lateral decubitus position, a nd a ? digital rectal exam was perfo rmed. ? The Colonoscope was inserted in the ? anus and under direct visuali zation, ? advanced to the terminal ileu m. ? Careful inspection was made a s the ? colonoscope was withdrawn. Th e ? colonoscopy was performed wit snehal ? difficulty. The patient faby ated the ? procedure well. The quality o f the ? bowel preparation was good. S cope ? insertion time was 4 minutes. Scope ? withdrawal time was 17 minute s. ? Findings: ? The perianal and digital rectal examinations were ? normal. ? A localized area of mildly friable mucosa with ? submuocsal hemorrhage with no bleeding was found in ? the distal 1-2cm of the rectum. ? No other significant abnormalities were identified in ? a careful examination of the remainder of the colon. ? The terminal ileum appeared normal. ? Impression: ?- Mild, 2cm short segment of dista l ? proctitis, likely prep relate d. ? - Normal rest of colon ? - The examined portion of the ileum ? was normal. Recommendation: ?- Discharge patient to home (via ? wheelchair). ? - If symptoms of diarrhea or ? proctitis occur, then can con country manager ? steroid or mesalamine supposi tory ? - Repeat colonosocpy in 10 ye ars for ? screening ? Israel Springer MD 03/04/2013 1:54 PM Number of Addenda: 0 Note Initiated On: 03/04/2013 12:36 PM Specimen (Source) Anatomical Collection Method Collection Time Re ceived Time Location / / Volume Laterality 03/04/2013 12:36 PM EST Lynda Phillips APRN GENERAL SURGICAL ORDERABLES Performing Organization Address City/State/ZIP Code Phon e Number [facility] documented in this encounter Visit Diagnoses Not on filedocumented in this encounter Care Teams Airport Operations Specialist Relationship Specialty Start Date End Date Lynda Phillips APRN PCP - General 10/25/12 documented as of this encounter
--- OUTSIDE RECORDS SUMMARY | 2021-12-21 08:24 | XMS_ITS | Encounter Summary ---
:1960 Author Organization [facility] Address [facility] [place] [address] Care Team Providers Name Role Phone Lynda Phillips GM Primary Care Provider Encounter Details Date Type Department Care Team Description 03/04/2013 Hospital Encounter Gastroenterology at [facility] Ania Marmolejo MD [facility] [address] [place] [address] [facility] Israel Plata MD [facility] [place] [address] [place] [address] Social History Tobacco Use Types Packs/Day Years [...] you need to be checked. Monday-Monday Clinic [phone] 8a-5p Same Day Endo [phone] 7a-8p Otherwise contact [phone] and ask to speak to the refrigerator crater second miller Follow up care is a rodríguez part [...] 03/04/2023 Hospital Encounter Gastroenterology Samantha Springer MD [facility] GASTROENTEROLOGY DEPT [place], [place] [address] (Wo rk) Scheduled Procedures Name [...] MAR Action Action Date Dose Rate Site sodium chloride 0.9% New Bag 03/04/2013 12:45 PM EST 50 mL/hr 50 mL/hr infusion 50 mL/hr, Intravenous, CONTINUOUS, Starting on Mon03/04/13 [...] Routine documented in this encounter Care Teams Apartment House Manager Relationship Specialty Start Date End Date Lynda Phillips APRN PCP - General 10/25/12 documented as of this encounter
[2021-12-22 09:23] LABS: Calcium Urine 5.3 mg/dL (See Note); Calcium Urine 24 hr 103 mg/24hrs (100-300); Timed Urine Volume 1950 mL
== END 2021-12-21 08:23 | disposition home or self-care (01) ==
LOC: LBN 08:22
PROVIDERS: PCP Specialist/Technologist Athletic Trainer; Visit Provider Internal Medicine Endocrinology, Diabetes & Metabolism
DX: M81.0 Age-related osteoporosis without current pathological fracture (principal)
CPT/HCPCS: 81050; 82340

== ENCOUNTER → 2023-01-30 11:48 | Outpatient (CLI) | payer BC, SELFPAY ==
--- NOTE | 2023-01-30 | DI.RAD_ITS ---
Exam(s) XR HAND LT COMPLETE EXAM: XR HAND LT COMPLETE CLINICAL HISTORY: INJURY USING WOOD SPLITTER, PAIN LT HAND, M79.642, ? BONY ABNORMALITY. TECHNIQUE: 2D digital imaging was performed. COMPARISON: No exams were available for comparison FINDINGS: 3 views No evidence of acute fracture nor dislocation. No osseous lesions nor erosions. Some degenerative c hanges are evident in the 1st carpometacarpal joint. There is a tiny sub mm radiopaque foreign body in the soft tissues of the distal index finger, locate d laterally.. This measures less seen 1 mm. No other foreign bodies identified. IMPRESSION: Tiny sub mm radiopaque foreign body located superficially in the lateral aspect of the 2nd-index fing er. DATA REPOSITORY: RADIATION DOSE DELIVERED:
--- NOTE | 2023-01-30 | DI.RAD_ITS ---
Exam(s) XR WRIST LT COMP NAVICULAR EXAM: XR WRIST LT COMP NAVICULAR CLINICAL HISTORY: PAIN LT WRIST, M25.532, INJURY WITH WOOD SPLITTER, ? FRACTURE. TECHNIQUE: 2D digital imaging was performed. COMPARISON: CR XR WRIST LT COMP NAVICULAR from 02/21/2019 FINDINGS: 3 views No evidence of acute fracture or dislocation nor significant ulnar variance. Scaphoid and scapholuna te distance normal. Benign bone island is again noted in the distal half of the scaphoid, unchanged. There are moderate degenerative changes at the 1st carpometacarpal joint. IMPRESSION: No acute osseous findings. Mild-moderate degenerative changes at the 1st carpometacarpal joint noted DATA REPOSITORY: RADIATION DOSE DELIVERED:
== END ==
PROVIDERS: PCP Specialist/Technologist Athletic Trainer; Visit Provider Physician Assistant Medical
DX: M18.12 Unilateral primary osteoarthritis of first carpometacarpal joint, left hand (principal); S60.451A Superficial foreign body of left index finger, initial encounter; W31.2XXA Contact with powered woodworking and forming machines, initial encounter; X58.XXXA Exposure to other specified factors, initial encounter
CPT/HCPCS: 73110; 73130

== ENCOUNTER 2023-02-08 09:03 | Emergency (ER) | payer OTHER, SELFPAY ==
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
[2023-02-08 09:13] VITALS: BP 168/94; PULSE 90; RESP 18; TEMP 36.7; O2SAT 100
--- NOTE | 2023-02-08 09:30 | DI.RAD_ITS ---
Exam(s) XR FOOT LT COMPLETE XR ANKLE LT COMPLETE EXAM: XR ANKLE LT COMPLETE CLINICAL HISTORY: pain post trauma TECHNIQUE: 2D digital imaging was performed. Three views of the foot and three views of the ankle. COMPARISON: CR XR ANKLE LT COMPLETE from 12/20/2018 CR XR FOOT LT COMPLETE from 02/08/2023 FINDINGS: BONES: No acute fracture is present. No bony destructive lesion is seen. JOINTS:The ankle mortise is normally aligned. SOFT TISSUE: Normal. IMPRESSION: Unremarkable radiographs of the left ankle and foot. DATA REPOSITORY: RADIATION DOSE DELIVERED:
--- NOTE | 2023-02-08 09:30 | DI.RAD_ITS ---
Exam(s) XR KNEE RT 3V AP,LAT,TENZIN EXAM: XR KNEE RT 3V AP,LAT,TENZIN CLINICAL HISTORY: pain post twisting injury, patella. TECHNIQUE: 2D digital imaging was performed. Three views. COMPARISON: No exams were available for comparison FINDINGS: BONES: No acute fracture is present. No bony destructive lesion is seen. JOINTS: The knee is normally aligned. No joint effusion is seen. SOFT TISSUE: Normal. IMPRESSION: Unremarkable radiographs of the right knee. DATA REPOSITORY: RADIATION DOSE DELIVERED:
[2023-02-08] MEDS: oxyCODONE 5 mg/Acetaminophen 325 mg TAB 1 TAB PO (10:24)
[2023-02-08] MEDS: Acetaminophen 325 MG TAB 650 MG PO (10:24)
== END 2023-02-08 10:53 | disposition home or self-care (01) ==
PROVIDERS: Emergency Provider Physician Assistant; PCP Specialist/Technologist Athletic Trainer
DX: V09.9XXA Pedestrian injured in unspecified transport accident, initial encounter; S97.82XA Crushing injury of left foot, initial encounter; M25.461 Effusion, right knee
CPT/HCPCS: 29505; 73562; 99283; 73610; 73630; 99284

== ENCOUNTER 2023-02-10 01:05 | Outpatient (CLI) | payer BC, SELFPAY ==
[2023-02-10 08:18] LABS: Calculated LDL 110 mg/dL (<100); Cholesterol 206 mg/dL (<200); HDL Cholesterol 77 mg/dL (40-60); Triglyceride 99 mg/dL (<150)
[2023-02-10 08:38] LABS: Hemoglobin A1C 4.9 % (<5.7)
== END 2023-02-10 01:06 | disposition home or self-care (01) ==
LOC: LBO 01:05
PROVIDERS: PCP Specialist/Technologist Athletic Trainer; Visit Provider Nurse Practitioner Family
DX: Z00.00 Encounter for general adult medical examination without abnormal findings (principal)
CPT/HCPCS: 36415; 80061; 83036

== ENCOUNTER → 2023-03-14 00:46 | Outpatient (CLI) | payer OTHER, SELFPAY ==
--- NOTE | 2023-03-14 08:15 | DI.MRI_ITS ---
Exam(s) MR LOWER JOINT LT WO EXAM: MR LOWER JOINT LT WO CLINICAL HISTORY: L ANKLE INJURY, OSTEOCHONDRAL DEFECT TALUS, M95.8 TECHNIQUE: Multiplanar multisequence MRI was performed without intravenous contrast. COMPARISON: CR XR ANKLE LT COMPLETE from 02/08/2023 FINDINGS: BONES/JOINTS: No fracture or contusion pattern. Focus of high T2 signal in the lateral talar dome me asuring a 4 millimeters transverse by 6 millimeters AP x 3 millimeters cephalo caudad. No visible ov erlying cartilage disruption. Adjacent bone island present. The ankle mortise is maintained. No patito nt effusion is present. Degenerative changes noted at the calcaneal cuboid joint. LIGAMENTS: The tibiofibular and calcaneofibular ligaments are intact. The talofibular ligaments are i ntact. The deltoid ligament is intact. The syndesmosis is unremarkable. Sinus tarsi is normal. MUSCULOTENDINOUS STRUCTURES: Achilles tendon: Unremarkable. Plantar fascia: Unremarkable. Anterior Extensor tendons: Unremarkable. Posterior Tibialis: Unremarkable. Flexor Digitorum longus: Unremarkable. Flexor Hallucis longus: Unremarkable. Peroneus longus: Unremarkable. Peroneus brevis:Unremarkable. SOFT TISSUES: Unremarkable mild edema in the subcutaneous fat at the level of the malleoli OTHER FINDINGS: None. IMPRESSION: Small osteochondral defect of the lateral talar dome. DATA REPOSITORY:
--- NOTE | 2023-03-14 08:15 | DI.MRI_ITS ---
Exam(s) MR LOWER JOINT RT WO EXAM: MR LOWER JOINT RT WO CLINICAL HISTORY: R KNEE/ANKLE INJURY, EFFUSION, S89.90XA. TECHNIQUE: Multiplanar multisequence MRI was performed. COMPARISON: CR XR KNEE RT 3V AP,LAT,TENZIN from 02/08/2023 FINDINGS: BONES: Nondisplaced vertically oriented fracture medial patella. Mild edema in the lateral pole of t he patella. JOINTS: Small joint effusion is present. Articular cartilage: Patellofemoral joint: Cartilage thinning without focal defect. Medial femoral tibial joint: Articular cartilage is unremarkable. Lateral femoral tibial joint: Articular cartilage is unremarkable. TENDONS: Extensor mechanism: Unremarkable. Medial retinaculum: Unremarkable. Lateral retinaculum: Unremarkable. Popliteus: Unremarkable. MUSCLES: Unremarkable. MENISCI: The medial meniscus is unremarkable. The lateral meniscus is unremarkable. SOFT TISSUES: Mild anterior edema. Small synovial cysts posterior to the lateral tibial plateau. LIGAMENTS: Anterior Cruciate: Unremarkable. Posterior Cruciate: Unremarkable. Medial Collateral:Unremarkable. Lateral Collateral: Unremarkable. IMPRESSION: Nondisplaced fracture medial patella. No evidence of meniscal tear. No evidence of ligament tear. DATA REPOSITORY:
== END ==
PROVIDERS: PCP Nurse Practitioner Family; Visit Provider Student in an Organized Health Care Education/Training Program
DX: S82.035A Nondisplaced transverse fracture of left patella, initial encounter for closed fracture; M95.8 Other specified acquired deformities of musculoskeletal system; X58.XXXA Exposure to other specified factors, initial encounter
CPT/HCPCS: 73721

== ENCOUNTER 2023-03-21 14:16 | Outpatient (CLI) | payer OTHER, SELFPAY ==
--- NOTE | 2023-03-21 09:30 | DI.RAD_ITS ---
Exam(s) XR KNEE RT 1V EXAM: XR KNEE RT 1V CLINICAL HISTORY: RIGHT KNEE PAIN. TECHNIQUE: 2D digital imaging was performed of the right knee. One views obtained. [facility] views we re obtained. COMPARISON: CR XR KNEE RT 3V AP,LAT,TENZIN from 02/08/2023 MR MR LOWER JOINT RT WO from 03/14/2023 FINDINGS: BONES: There has been no change in alignment of the nondisplaced fracture involving the medial aspect of the patella. No bony destructive lesion is seen. JOINTS: The joint space is well maintained. SOFT TISSUE: There is mild soft tissue swelling. IMPRESSION: Nondisplaced fracture of the medial aspect of the patella. DATA REPOSITORY: RADIATION DOSE DELIVERED:
== END 2023-03-21 14:17 | disposition home or self-care (01) ==
LOC: DIORS 14:17
PROVIDERS: PCP Nurse Practitioner Family; Visit Provider Student in an Organized Health Care Education/Training Program
DX: S82.034D Nondisplaced transverse fracture of right patella, subsequent encounter for closed fracture with routine healing (principal); X58.XXXD Exposure to other specified factors, subsequent encounter
CPT/HCPCS: 73560

== ENCOUNTER 2023-04-18 15:55 | Outpatient (CLI) | payer OTHER, SELFPAY ==
--- NOTE | 2023-04-18 11:29 | DI.RAD_ITS ---
Exam(s) XR ANKLE LT COMPLETE EXAM: XR ANKLE LT COMPLETE CLINICAL HISTORY: F/U ANKLE PAIN TECHNIQUE: 2D digital imaging was performed of the left ankle. Three images were obtained. AP, lat eral and oblique views were obtained. COMPARISON: CR XR ANKLE LT COMPLETE from 02/08/2023 MR MR LOWER JOINT LT WO from 03/14/2023 FINDINGS: BONES: No acute fracture is present. No bony destructive lesion is seen. JOINTS:The ankle mortise is normally aligned. SOFT TISSUE: Normal. IMPRESSION: Unremarkable radiographs of the left ankle. DATA REPOSITORY: RADIATION DOSE DELIVERED:
--- NOTE | 2023-04-18 11:29 | DI.RAD_ITS ---
Exam(s) XR KNEE RT 1V EXAM: XR KNEE RT 1V CLINICAL HISTORY: F/U FRACTURE. TECHNIQUE: 2D digital imaging was performed. COMPARISON: CR XR KNEE RT 1V from 03/21/2023 FINDINGS: Single merchant's view of the right patella again reveals no change in alignment of the fracture of t he medial aspect of the patella. Fracture line is still visible and appears unchanged. There is no patellar subluxation nor significant narrowing of the retropatellar space. IMPRESSION: No radiographic change compared to 03/21/2023. DATA REPOSITORY: RADIATION DOSE DELIVERED:
== END 2023-04-18 15:56 | disposition home or self-care (01) ==
LOC: DIORS 15:55
PROVIDERS: PCP Nurse Practitioner Family; Visit Provider Student in an Organized Health Care Education/Training Program
DX: S82.001D Unspecified fracture of right patella, subsequent encounter for closed fracture with routine healing (principal); M95.8 Other specified acquired deformities of musculoskeletal system; X58.XXXD Exposure to other specified factors, subsequent encounter; Y99.0 Civilian activity done for income or pay
CPT/HCPCS: 73560; 73610

== ENCOUNTER 2023-05-01 10:10 | Outpatient (CLI) | payer SELFPAY ==
--- NOTE | 2023-05-01 10:00 | RT.EKG_ITS ---
APPROVED REPORT Exam: Resting ECG Reason for Exam: PAK Patient Location: O HR:86 bpm ECG Measurements Heart Rate 86 AXIS IL 167 P 42 QRSd 88 QRS -4 QT 369 T 20 QTc 442 Conclusion Sinus rhythm...normal P axis, V-rate 50- 99 Normal Electrocardiogram Baseline wander in lead(s) V1,V2
== END 2023-05-01 10:11 | disposition home or self-care (01) ==
LOC: DI.CARD 10:11
PROVIDERS: PCP Nurse Practitioner Family; Visit Provider Internal Medicine Cardiovascular Disease
DX: R06.09 Other forms of dyspnea (principal)
CPT/HCPCS: 93010

== ENCOUNTER → 2023-05-08 00:56 | Outpatient (CLI) | payer BC, SELFPAY ==
--- NOTE | 2023-05-08 06:30 | ETT_ITS ---
APPROVED REPORT Exam: Exercise Treadmill Patient Location: Out-Patient Room/Bed: Stress Nurse: Kimberly Velasquez RN Ordering Provider:MITZY MCKEON, Contact Number: BMI: 28.40 Baseline Rhythm: Sinus Rhythm Indications: Dyspnea on exertion, family h/o ischemic heart disease Medical History Medical History: PAK, osteoporosis, hyperparathyroidism, HTN, osteopenia, acid reflux, tobacco use di sorder Cardiac Medications: None Allergies: NKDA Cardiac Risk Factors: +family history, +HTN Previous Cardiac Procedures: None Pretest Chest Pain Characteristics: None Exercise History: Indeterminate Lung Sounds: Clear/Diminished Heart Sounds: Regular Stress Test Details Test: Exercise stress testing was performed using a Jamie protocol. Rest Stress HR Resting HR Supine: 77 bpm Max Heart Rate (APMHR): 157 bpm Resting HR Standin bpm Target HR (85% APMHR): 133 bpm Max HR Achieved: 138 bpm % of APMHR: 88 Recovery HR: 77 bpm HR response to stress: Normal HR response to stress BP Resting BP Supine: 144/94 mmHg Resting BP Standin/88 mmHg Max BP: 190/88 mmHg Recovery BP: 148/90 mmHg BP response to stress: Normal blood pressure response to stress. ECG Resting ECG: Sinus Rhythm Ectopy: None Stress ECG: Sinus Tachycardia ST Change: None Arrhythmia: None Recovery ECG: Sinus Rhythm Recovery ST Change: None Recovery Arrhythmia: None Clinical Stress Symptoms: Lightheaded, short of breath Exercise duration: 4 min46 sec Highest Stage Reached: Stage 2: 2.5 mph at 12% grade. Exercise capacity: 6.76 METs Angina Score: None [place] Treadmill Score: 4.6 Rate Pressure Product: [id number] Stress ECG Conclusion 1. Resting electrocardiogram was within normal limits 2. Patient exercised on the Jamie protocol and completed a workload of 6.76 METS 3. Normal heart rate and blood pressure response to exercise. Patient achieved 88% of predicted hear t rate for age 4. There was no electrocardiographic evidence of myocardial ischemia 5. There were no significant dysrhythmias [place] Treadmill Score is 4.6 which is Moderate risk. Stress Test Summary STAGE Time (mins) Speed (mph) Grade (%) HR BP SpO2 SYMPTOMS METS Supine 77 144/94 99% Standing 76 152/88 1 3 1.7 10 115 4.5 2 6 2.5 12 136 lightheaded, short of breath (mild) 7 1 min recovery 120 190/88 3 min recovery 82 174/90 98% 6 min recovery 77 148/90
== END ==
PROVIDERS: PCP Nurse Practitioner Family; Visit Provider Internal Medicine Cardiovascular Disease
DX: Z82.49 Family history of ischemic heart disease and other diseases of the circulatory system (principal); R06.09 Other forms of dyspnea
CPT/HCPCS: 93017

== ENCOUNTER 2023-06-20 14:19 | Outpatient (CLI) | payer OTHER, SELFPAY ==
--- NOTE | 2023-06-20 09:48 | DI.RAD_ITS ---
Exam(s) XR KNEE RT 1V EXAM: XR KNEE RT 1V CLINICAL HISTORY: F/U FRACTURE. TECHNIQUE: 2D digital imaging was performed. COMPARISON: MR MR LOWER JOINT RT WO from 03/14/2023 CR XR KNEE RT 1V from 03/21/2023 CR XR KNEE RT 1V from 04/18/2023 FINDINGS: Single merchant's view: Appearance of the patella on this single view is unchanged from 04/18/2023 and 03/21/2023. The fracture line in the medial aspect of the patella appears unchanged on this single view. There i s no significant narrowing of the retropatellar space. No patellar displacement. IMPRESSION: Unchanged from prior images listed above. DATA REPOSITORY: RADIATION DOSE DELIVERED:
--- NOTE | 2023-06-20 09:52 | DI.RAD_ITS ---
Exam(s) XR ANKLE LT COMPLETE EXAM: XR ANKLE LT COMPLETE CLINICAL HISTORY: F/U ANKLE. TECHNIQUE: 2D digital imaging was performed. COMPARISON: CR XR ANKLE LT COMPLETE from 04/18/2023 FINDINGS: 3 views No evidence of fracture or widening of the ankle mortise. Talar dome unremarkable. Bone density nor mal. No osseous lesions. No osseous tarsal coalition evident. IMPRESSION: No acute osseous findings in the ankle and no significant change compared to images of 04/18/2023. DATA REPOSITORY: RADIATION DOSE DELIVERED:
== END 2023-06-20 14:20 | disposition home or self-care (01) ==
LOC: DIORS 14:20
PROVIDERS: PCP Nurse Practitioner Family; Visit Provider Student in an Organized Health Care Education/Training Program
DX: M95.8 Other specified acquired deformities of musculoskeletal system (principal); S82.034D Nondisplaced transverse fracture of right patella, subsequent encounter for closed fracture with routine healing; X58.XXXD Exposure to other specified factors, subsequent encounter
CPT/HCPCS: 73560; 73610

== ENCOUNTER 2024-01-15 15:36 | Outpatient (CLI) | payer OTHER, SELFPAY ==
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
== END 2024-01-15 15:56 ==
LOC: DI 15:38
PROVIDERS: PCP Nurse Practitioner Family; Visit Provider Student in an Organized Health Care Education/Training Program
DX: S82.034D Nondisplaced transverse fracture of right patella, subsequent encounter for closed fracture with routine healing (principal); X58.XXXD Exposure to other specified factors, subsequent encounter
CPT/HCPCS: 73721

== ENCOUNTER 2024-06-21 16:45 | Outpatient (REF) | payer MEDICARE, SELFPAY ==
[2024-06-21 19:06] LABS: ALT 38 U/L (16-63); AST 22 U/L (15-37); Albumin 3.9 g/dL (3.4-5.0); Alkaline Phosphatase 54 U/L (46-116); Anion Gap 9.4 mmol/L (3-11); BUN 21 mg/dL (7-18); Bilirubin, Total 0.5 mg/dL (0.2-1.0); CO2 26.6 mmol/L (21.0-32.0); CREATININE 0.9 mg/dL (0.70-1.30); Calcium 8.9 mg/dL (8.5-10.1); Calculated LDL 81 mg/dL (<100); Chloride 107 mmol/L (98-107); Cholesterol 196 mg/dL (<200); Estimated GFR 94.78 (mL/min/1.73m2); Glucose 95 mg/dL (74-106); HDL Cholesterol 81 mg/dL (>or=40); Potassium 4.1 mmol/L (3.5-5.1); Sodium 143 mmol/L (136-145); Total Protein 7.1 g/dL (6.4-8.2); Triglyceride 173 mg/dL (<150)
[2024-06-24 10:05] LABS: PSA, Screening 0.4 ng/mL (<=4.5)
== END 2024-06-21 16:46 | disposition home or self-care (01) ==
LOC: NCHCN 16:45
PROVIDERS: PCP Nurse Practitioner Family; Visit Provider Nurse Practitioner Family
DX: Z00.00 Encounter for general adult medical examination without abnormal findings (principal)
CPT/HCPCS: 80053; 80061; 84153

== ENCOUNTER → 2024-10-10 09:20 | Outpatient (BNVA) | payer MEDICARE, SELFPAY | PROVIDERS: PCP Nurse Practitioner Family; Referring Provider Nurse Practitioner Family; Visit Provider Physical Therapy Assistant | DX: Z12.11 Encounter for screening for malignant neoplasm of colon (principal) | CPT/HCPCS: S0285 ==

== ENCOUNTER 2024-11-04 06:29 | Day surgery (SDC) | payer MEDICARE, SELFPAY ==
--- NOTE | 2024-11-03 07:55 | W.PM.DSUDISC ---
Date of service: 11/04/24 Discharge Plan Disposition Patient Disposition: Home Condition: Good Discharge Details Reason For Visit: screening colonoscopy Attending Provider: Kings Payan Primary Care Provider: Maria Teresa Mejia Home Meds and New Rx's Prescriptions: Continued omeprazole 20 mg capsule,delayed release(DR/EC) 20 mg PO DAILY cholecalciferol (vitamin D3) 25 mcg (1,000 unit) capsule 25 mcg PO DAILY multivitamin Tablet 1 tab PO DAILY B-complex with vitamin C Capsule 1 cap PO DAILY ibuprofen 600 mg tablet 600 mg PO Q8H PRN (Reason: pain) Qty: 20 0RF amlodipine 5 mg tablet 5 mg PO DAILY Patient Comments: TAKE ONE TABLET BY MOUTH EVERY DAY FOR HYPERTENSION alendronate 70 mg tablet 70 mg PO .q week Patient Comments: TAKE ONE TABLET BY MOUTH ONCE A WEEK Rx Instructions: Take every Monday with an empty stomach. Claritin-D 24 Hour 10-240 mg tablet extended release 24 hr 1 tab PO DAILY calcium carbonate-vitamin D2 600 mg calcium- 200 unit tablet 1 tab PO DAILY Discontinued bisacodyl [Dulcolax (bisacodyl)] 5 mg tablet,delayed release (DR/EC) 5 mg PO ONCE Qty: 4 0RF Rx Instructions: Take per colonoscopy instructions provided by ordering providers office polyethylene glycol 3350 17 gram/dose powder 17 g PO ONCE Qty: 238 0RF Rx Instructions: Take per colonoscopy instructions provided by ordering providers office Discharge Instructions Instructions: Colon polyps, Proctitis Additional Instructions: David, it was very nice to meet you today. I hope you feel well after the procedure. Things went very smoothly. I did find, and remove, 2 polyps today. Both are quite small, and I do not suspect that these are anything to worry about. I will have the pathologist resend these polyps, and once I know their exact nature, my office will be in touch with recommendations future colonoscopies. Incidentally, you also have a little bit of proctitis, for elevations in your rectum. I did some biopsies of this as well to rule out things like ulcerative colitis, but I suspect it is probably just a side effect of the bowel prep. These biopsies were quite close to your anus, so do not be alarmed that you have little bit of blood in the first few bowel movements. all of the results will take a week or so to get back. If you need anything in the meantime, please do not hesitate to ask. 1. If tolerated, consume a soft, low fiber diet for 1-2 days. 2[address] Do not drive, drink alcohol, operate machinery, make critical decisions, or do activities that require coordination or balance for 24 hours. 3. Because air was put into your colon during the procedure, expelling air from your rectum (passing gas or farting) is normal. 4. You may not have a bowel movement for 1-3 days because of the colonoscopy prep. This is normal. 5. Go directly to the emergency room if you notice any of the following: Develop chills (warm to touch), or if you have a thermometer and your temperature is above 101 Difficulty breathing or difficultly swallowing Persistent vomiting Severe abdominal pain, other than gas cramps Severe chest pain Black, tarry stools Any bleeding ? exceeding one tablespoon 6. Call your physician if the site where your intravenous was started becomes red, swollen, painful, and warm to touch. 7. Your physician has reviewed your pre-procedure medications. Please continue to take those medications as previously ordered. You will be given specific information/education regarding any changes to your medications before leaving. Activity:: Activity as Tolerated Diet:: As Tolerated Discharge Orders Discharge Orders: Discharge Order (Routine); Ordered 11/03/24 Ordered By: Kings Payan DS: Diagnosis Discharge Diagnosis (1) Encounter for screening colonoscopy: Status: Acute Asessment and Plan: Follow-up on biopsy results
--- NOTE | 2024-11-03 07:56 | COLE_ITS ---
Date of service: 11/04/24 Time of Service: 07:59 Colonoscopy Report Date of procedure: 11/04/24 Pre-op diagnosis general: screening colonoscopy Post-op diagnosis procedure note: other (Proctitis, colon polyps) Procedure: colonoscopy with biopsies and polypectomy Surgeon: Kings Payan Anesthesia Type: General:No Airway Estimated blood loss (mL): 10 Pathology: other (Rectal biopsies, 0.25 cm flat polyp at 60 cm, 0.25 cm flat polyp at 40 cm) Complications: None Disposition: same day Indications: David is a 64 year old man who needs a screening colonoscopy Prep: Miralax/Dulcolax Procedure Start Time: 07:32 Procedure End Time: 07:48 Retraction Time: 7 Findings: 0.25 cm flat polyp at 60 cm, 0.25 cm flat polyp at 40 cm; proctitis Procedure Description: After the induction of anesthesia, and with the patient in left lateral d ecubitus position, I began by performing an external anorectal exam.? Perineum and skin were normal, as was the anal verge.? There was no evidence of external hemorrhoids.? Next, I performed a digital rectal exam.? I did not appreciate any abnormal findings.? Next, I advanced a colonoscope into the rectal vault.? I performed retroflexion.? This was normal.? There is a small patch of inflammation in the distal rectum. Cold forceps biopsy. There was minimal bleeding. Using insufflation, I then advanced the colonoscope beyond the rectal folds and into the sigmoid colon before advancing towards the cecum. The scope was noted to be in the cecum by identification of the ileocecal valve and appendiceal orifice.? I then began withdrawing the colonoscope using repeated irrigation as necessary for full evaluation of the colonic mucosa. Around 65 cm from the anal verge I identified a 0.25 cm polyp. ?It appeared flat in character. ?I was able to remove this with a cold forcep polypectomy. ?I ex amined the site, and there was minimal bleeding. Similarly, another 0.25 cm flat polyp was found at 40 cm. This was also removed without issues using cold snare. Once this was completed, I continued to withdraw the scope and examine the remainder of the colonic mucosa.?Once the scope was withdrawn to the level of the rectum, great care was taken to examine portions of the rectal folds.? Finally, the scope was withdrawn and the patient was brought to the same-day surgery recovery unit as the anesthetic wore off. ?The findings and instructions were shared with the patient prior to discharge. Fleming Bowel Prep Fleming Bowel Prep Right Colon: 3 Left Colon: 3 Transverse Colon: 3 Total Score: 9
--- NOTE | 2024-11-03 14:57 | W.ANESPRE ---
General Info Date of Service Date Performed: 11/04/24 Height: 5 ft 10.5 in Weight: 83.007 kg Body Mass Index (BMI): 25.9 Surgical Procedure: Operation Date: 11/04/24 07:35 Proposed Procedure Side Surgeon montez Payan MD Meds Allergies and Home Medications Allergies Allergy/AdvReac Type Severity Reaction Status Date / Time No Known Allergies Allergy Verified 11/04/24 06:42 Home Medication ?Medication ?Instructions ?Recorded ibuprofen 600 mg tablet 600 mg PO Q8H PRN pain #20 tabs 12/06/18 alendronate 70 mg tablet 70 mg PO .q week 02/08/23 calcium carb-ergocalciferol (vit 1 tab PO DAILY 02/08/23 D2) 600 mg calcium-200 unit tablet loratadine-pseudoephedrine ER 10 1 tab PO DAILY 02/08/23 mg-240 mg tablet,extended [id number] (Claritin-D 24 Hour) cholecalciferol (vitamin D3) 25 25 mcg PO DAILY 05/10/23 mcg (1,000 unit) capsule B-complex with vitamin C 1 cap PO DAILY 05/23/23 multivitamin 1 tab PO DAILY 05/23/23 omeprazole 20 mg capsule,delayed 20 mg PO DAILY 06/20/23 release amlodipine 5 mg tablet 5 mg PO DAILY 10/31/24 Current Visit Medications: Current Medications Generic Name Dose Route Start Last Admin Trade Name Freq PRN Reason Stop Dose Admin Ringer's Solution 1,000 mls @ 80 mls/hr 11/04/24 06:00 IV 11/04/24 23:59 INFUSION [facility] IV Miscellaneous Supplies 1 each 11/04/24 06:00 Iv Access IV 11/04/24 23:59 DIRECTED NIK Ondansetron HCl 4 mg 11/03/24 07:57 Ondansetron 4 Mg/2 Ml Vial IVP 12/03/24 07:56 Q4H PRN PRN Nausea / Vomiting Sodium Chloride 0 ml 11/04/24 06:00 Normal Saline Flush 10 Ml Syr IV 11/04/24 23:59 PRN PRN Sodium Chloride 0 ml 11/04/24 06:00 Normal Saline 10 Ml Vial IJ 11/04/24 23:59 DIRECTED PRN Sterile Water 0 ml 11/04/24 06:00 Water,Injection,Sterile 10 Ml Vial IJ 11/04/24 23:59 DIRECTED PRN [facility] Active Problems Active Problems: Problem Status Onset Code Encounter for screening colonoscopy Acute Z12.11 Senile osteoporosis Acute M81.0 Torticollis Acute M43.6 Secondary hyperparathyroidism Acute N25.81 Essential hypertension Acute I10 Visual disturbance Acute H53.9 Nicotine dependence Acute F17.200 Family history of ischemic heart disease Acute Z82.49 PAK (dyspnea on exertion) Acute R06.09 Fracture of patella, right, closed Acute S82.001A Osteochondral defect of talus Acute M95.8 Internal derangement of right knee Acute M23.91 Osteoarthritis of carpometacarpal (CMC) joint of left thumb Acute M18.12 Injury of left ankle and foot Acute S99.912A, S99.922A T12 compression fracture Acute S22.080A Medical History Medical History GERD (gastroesophageal reflux disease) Surgical History Surgical History S/P colonoscopy 03/04/2013 Tobacco Smoking/Tobacco Use Status: Current-Occasional Tobacco Type: cigars Alcohol Alcohol Intake: current Alcohol intake frequency: 0-2 drinks per day Alcohol type: beer Substance Use Substance use: Occasionally Substance use type: marijuana Details: once a week to once every other week for marijuana Vital Signs and Lab Results Vital Signs Most Recent Vital Signs in EMR: Temp Pulse Resp BP Pulse Ox 36.5 C 59 L 16 133/94 H 100 11/04/24 06:51 11/04/24 06:51 11/04/24 06:51 11/04/24 06:51 11/04/24 06:51 Anesthesia Assessment and Plan Anesthesia History Personal History: No History of Anesthesia Complications Family History: No Family History of Anesthesia Complications Exercise Tolerance Exercise Tolerance: Metabolic Equivalents>4 Cardiac & Pulmonary Exam Cardiac Exam: Normal S1/S2 Heart Sounds Pulmonary Exam: Clear Bilateral Breath Sounds Implantable Cardiac Device Does patient have a Pacemaker or an ICD?: No Airway Exam Known Difficult Airway: No Mallampati Class: 1 Mouth Opening: Normal (> 3cm) Thyromental Distance: Greater than 3 cm Neck Range of Motion: Limited ROM Neck Circumference: Normal Teeth Condition: Normal Dentition Tooth Numbering:  1. missing ASA Classification ASA Score: ASA 2 Emergency Case?: No NPO Status NPO Status: NPO Clears >2 hours, Solids >8 hours Anesthesia Plan Resuscitation Status: Full Code Anesthesia Technique: General Anesthesia Airway Planned: Natural Airway Monitors Used: Standard Monitors Preoperative Comments:: 64 yo male for colo. Sig PMHx: HTN (amlodipine), PAK, GERD (omeprazole), ECG: sinus. Stress: 6.7 METS, no ECG evidence of ischemia.
[2024-11-04 06:51] VITALS: BP 133/94; PULSE 59; RESP 16; TEMP 36.5; O2SAT 100
[2024-11-04 07:00] VITALS: BMI 25.9
[2024-11-04] MEDS: Lactated Ringers 1,000 ML 80 ML IV (07:02)
--- NOTE | 2024-11-04 07:34 | BOWEL_PTH ---
PATIENT: David Saunders LOC: [facility] U#:[id number] AGE/SX: 64/M ROOM: RE11/04/[address]: Kings Payan MD : [id number] BED: DIS: 11/04/2024 SPEC #: [id number] RECD: 11/04/24 12:33 STATUS: PARVEEN RE #: [id number] VENKATESH: 11/04/24 07:[address]: Kings Payan DEPT: Surgical Specimen RECD BY: Ania Garcia ENTERED: 11/04/24 12:34 SP TYPE: Bowel OTHR DR: Maria Teresa Mejia Tissues: 1 - BIOPSY BOWEL 2 - BIOPSY BOWEL 3 - BIOPSY BOWEL Procedures: GROSS AND MICRO LEVEL 4 Comments: [id number]
[2024-11-04 07:53] VITALS: BP 122/82; PULSE 75; RESP 16; TEMP 36.4; O2SAT 100
--- NOTE | 2024-11-04 08:23 | W.ANESPOSTOP ---
Postoperative Evaluation Date, Time and Location Date Performed: 11/04/24 Time Performed: 08:05 Patient Location: Day Surgery Unit Vital Signs Most Recent Imported Vital Signs: Most Recent Vital Signs Temp Pulse Resp BP Pulse Ox 36.4 C L 75 16 122/82 100 11/04/24 07:53 11/04/24 07:53 11/04/24 07:53 11/04/24 07:53 11/04/24 07:53 Pain Score Most Recent Pain Score: Most Recent Pain Score Pain Level 0 11/04/24 07:53 Assessment Mental Status: Awake (Alert & Oriented to Patient Baseline) Airway and Respiratory Function: Patent airway with normal (patient baseline) respiratory exam Cardiovascular Function: Hemodynamically Stable Hydration Status: Adequately Hydrated Nausea & Vomiting: No Nausea or Vomiting Pain: Pt. Denies Any Pain Peripheral Nerve Block: Patient did not receive a nerve block
[2024-11-04 08:30] VITALS: BP 131/82; PULSE 69; RESP 18; TEMP 36.5; O2SAT 99
== END 2024-11-04 08:45 | disposition home or self-care (01) ==
PROVIDERS: PCP Nurse Practitioner Family; Visit Provider Surgery
PROC: 0DJD8ZZ Inspection of Lower Intestinal Tract, Via Natural or Artificial Opening Endoscopic (ICD-10-PCS; CPT 45378; principal; 2024-11-04 07:30)
DX: Z12.11 Encounter for screening for malignant neoplasm of colon (principal); I10 Essential (primary) hypertension; K21.9 Gastro-esophageal reflux disease without esophagitis; D12.5 Benign neoplasm of sigmoid colon; D12.4 Benign neoplasm of descending colon; K62.89 Other specified diseases of anus and rectum
CPT/HCPCS: 45380; 88305; J2704

== ENCOUNTER 2024-11-13 15:47 | Outpatient (REF) | payer MEDICARE, SELFPAY ==
[2024-11-13 15:13] LABS: Anion Gap 6.3 mmol/L (3-11); BUN 20 mg/dL (7-18); CO2 28.7 mmol/L (21.0-32.0); Calcium 9.0 mg/dL (8.5-10.1); Chloride 104 mmol/L (98-107); Estimated GFR 98.21 (mL/min/1.73m2); Glucose 94 mg/dL (74-106); Potassium 4.2 mmol/L (3.5-5.1); Sodium 139 mmol/L (136-145)
== END 2024-11-13 15:48 | disposition home or self-care (01) ==
LOC: NCHCN 15:47
PROVIDERS: PCP Nurse Practitioner Family; Visit Provider Nurse Practitioner Family
DX: I10 Essential (primary) hypertension (principal)
CPT/HCPCS: 80048

== ENCOUNTER 2024-12-12 01:39 | Outpatient (CLI) | payer MEDICARE, SELFPAY ==
--- NOTE | 2024-12-12 | DI.DEXA_ITS ---
Exam(s) XR DEXA BONE DENSITY W/WO [place] EXAM: XR DEXA BONE DENSITY W/WO [place] CLINICAL HISTORY: SENILE OSTEOPOROSIS M81.0 TECHNIQUE: [employer] C densitometer analysis of left hip, lumbar spine and left forearm. Lateral survey image of the thoracic and lumbar spine. COMPARISON: DX DEXA BONE DENSITY WITH [place] from 08/18/2010 DX DEXA BONE DENSITY WITH [place] from 02/11/2014 DX DEXA BONE DENSITY WITH [place] from 02/09/[address] THORACIC LUMBAR SPINE WO from 12/06/2018 FINDINGS: Lateral view of the thoracic and lumbar spine shows a mild to moderate compression fracture T12. Patient has an acute fracture in 2019. Bone mineral density measurements of the lumbar spine correspond to a total T- score of -1.1, in the osteopenic range. This represents a 5.4 percent increase from 2015 and 22.7 percent increase compared to 2007 Bone mineral density measurements of the left hip correspond to a total T-score of -1.0. This is not significantly changed from 2015 but represents a 6 percent increase from 2007. the femoral neck T-score is -2.4, in the osteopenic range. Theleft forearm bone mineral density measurements correspond to a T-score of the distal 3rd of -0.8, in the normal range. This is not significantly changed from prior exams.. IMPRESSION: Normal bone mineral density of the forearm. Osteopenia of the spine and hip.
== END 2024-12-12 01:59 ==
LOC: DI 01:40
PROVIDERS: PCP Nurse Practitioner Family; Visit Provider Nurse Practitioner Family
DX: M81.0 Age-related osteoporosis without current pathological fracture (principal)
CPT/HCPCS: 77080

== ENCOUNTER 2025-01-06 11:23 | Outpatient (REF) | payer MEDICARE, SELFPAY ==
[2025-01-06 16:08] LABS: Anion Gap 9.1 mmol/L (3-11); BUN 17 mg/dL (7-18); CO2 28.9 mmol/L (21.0-32.0); Calcium 8.9 mg/dL (8.5-10.1); Chloride 102 mmol/L (98-107); Estimated GFR 98.21 (mL/min/1.73m2); Glucose 101 mg/dL (74-106); Potassium 4.1 mmol/L (3.5-5.1); Sodium 140 mmol/L (136-145)
== END 2025-01-06 11:24 | disposition home or self-care (01) ==
LOC: NCHCN 11:23
PROVIDERS: PCP Nurse Practitioner Family; Visit Provider Nurse Practitioner Family
DX: I10 Essential (primary) hypertension (principal)
CPT/HCPCS: 80048

== ENCOUNTER 2025-03-03 15:57 | Outpatient (CLI) | payer MEDICARE, SELFPAY ==
--- NOTE | 2025-03-03 15:50 | DI.RAD_ITS ---
Exam(s) XR WRIST LT COMPLETE EXAM: XR WRIST LT COMPLETE CLINICAL HISTORY: OA L CMC. TECHNIQUE: 2D digital imaging was performed. Three views. COMPARISON: CR XR WRIST LT COMP NAVICULAR from 01/30/2023 FINDINGS: BONES: No acute fracture is present. No bony destructive lesion is seen. Slight positive ulnar variance. JOINTS: The carpal bones are normally aligned. Mild narrowing at the ulnar lunate joint but no significant sclerosis. There is joint space narrowing and periarticular spurring at the 1st carpal metacarpal joint. There is a few adjacent degenerative bony fragments. SOFT TISSUE: Normal. IMPRESSION: Moderate severe degenerative changes of the 1st CMC joint. Mild positive ulnar variance. DATA REPOSITORY: RADIATION DOSE DELIVERED:
--- NOTE | 2025-03-03 15:50 | DI.RAD_ITS ---
Exam(s) XR WRIST RT COMPLETE EXAM: XR WRIST RT COMPLETE CLINICAL HISTORY: RIGHT HAND PAIN. TECHNIQUE: 2D digital imaging was performed. Three views. COMPARISON: CR XR WRIST LT COMPLETE from 03/03/2025 FINDINGS: BONES: No acute fracture is present. No bony destructive lesion is seen. Mild positive ulnar variance. Narrowing of the joint space between the lunate and distal ulna with periarticular sclerosis. Mild spurring at the distal radial ulnar joint. JOINTS: The carpal bones are normally aligned. SOFT TISSUE: Normal. IMPRESSION: Mild positive ulnar variance and degenerative changes at the ulna lunate joint. DATA REPOSITORY: RADIATION DOSE DELIVERED:
== END 2025-03-03 15:58 | disposition home or self-care (01) ==
LOC: DIORS 15:57
PROVIDERS: PCP Nurse Practitioner Family; Visit Provider Student in an Organized Health Care Education/Training Program
DX: M18.0 Bilateral primary osteoarthritis of first carpometacarpal joints (principal)
CPT/HCPCS: 99213; 20606; J1010; 73110